=== PATIENT | female | born 1955 | race Caucasian/White ===

== ENCOUNTER → 2021-10-28 | Outpatient (CLI) | payer MEDICARE ==
[2021-10-29 00:25] LABS: DHEA SO4 75.5 ug/dL (20.4-186.6); ESTRADIOL LEVEL 62.3 pg/mL (.); PROGESTERONE 9.2 ng/mL (.); TESTOSTERONE TOTAL 24 ng/dL (3-67)
== END ==
LOC: LAB 13:37
PROVIDERS: ATTEND Family Medicine
DX: N95.8 Other specified menopausal and perimenopausal disorders (principal); R68.82 Decreased libido; R53.83 Other fatigue
CPT/HCPCS: 36415; 82627; 82670; 84144; 84403

== ENCOUNTER → 2021-12-16 | Outpatient (CLI) | payer MEDICARE | LOC: LAB 13:46 | PROVIDERS: ATTEND Family Medicine | DX: N95.8 Other specified menopausal and perimenopausal disorders (principal) | CPT/HCPCS: 36415; 84144 ==